=== PATIENT | female | born 1940 | race Two or more races ===

== ENCOUNTER 2019-12-13 06:50 | Day surgery (SDC) | payer OTHER ==
[~2019-12-13 06:50] MED LIST: ADULT LOW DOSE81 M1 PO; CALCIUM 500 MG1 EAC2 PO; CENTRUM ADULTS1 EACH PO; FOLIC PO; GABAPENTIN300 MG PO; HALCION0.25 MG PO; IMODIUM A-D2 M2 PO; INTESTINEX1 CA1 PO; MIRALAX17 GM PO; NEURONTIN300 MG PO; PROLIA; PROTONIX40 MG PO; SYNTHROID75 MCG PO; TOPROL XL25 M1 PO; TRAM1TAB98 PO; TYLENOL ARTHRI650 MG PO; VITAMIN B12 PO; WELLBUTRIN SR150 MG PO; XANAX PO
== END 2019-12-13 20:10 | disposition home or self-care (01) ==
LOC: CIR.AMB 06:50
DX: D05.11 Intraductal carcinoma in situ of right breast (principal)

== ENCOUNTER 2021-04-27 07:21 | Day surgery (SDC) | payer OTHER | END 2021-04-27 11:35 | disposition home or self-care (01) | LOC: AMB-ENDOS 07:21 | PROVIDERS: ATTEND Surgery | DX: K62.89 Other specified diseases of anus and rectum (principal); Z20.822 Contact with and (suspected) exposure to COVID-19; K64.8 Other hemorrhoids ==